=== PATIENT | female | born 1965 | race Caucasian/White ===

== ENCOUNTER 2018-12-23 03:14 | Emergency (ER) | payer OTHER ==
--- OUTSIDE RECORDS SUMMARY | 2018-12-23 03:18 | XMS REPORT | Clinical Summary ---
:1965 Author Organization [facility] Address [address] [place] [address] Care Team Providers Name Role Phone Oneil Gold MD Primary Care Provider Allergies No Known Allergies Medications Medication Sig Dispensed Refills Start Date End Date Status losartan-hydrochlorothi Take 1 tablet by 3 12/31/2017 Active azide (HYZAAR) 100-12.5 mouth daily. mg per tablet celecoxib (CeleBREX) Take 200 mg by 3 03/17/2018 Active 200 MG capsule mouth daily. zolpidem (AMBIEN) 5 MG Take 5 mg by 2 02/12/2018 Active tablet mouth nightly. liothyronine (CYTOMEL) Take 5 mcg by 0 Active 5 MCG tablet mouth daily. amLODIPine (NORVASC) Take 2.5 mg by 0 Active 2.5 mg tablet mouth daily. omeprazole (PriLOSEC) Take 40 mg by 0 Active 40 MG capsule mouth daily. aspirin (ASPIR-LOW) 81 Take 81 mg by 0 Active MG enteric coated mouth daily. tablet cholecalciferol, Take 1,000 Units 0 Active vitamin D3, (VITAMIN by mouth daily. D3) 1,000 unit tablet Active Problems Not on file Encounters Date Type Specialty Care Team Description 12/19/2018 Orders Only Urology Rylee Adrenal mass (HCC) Alonso gupta (Primary Dx) 12/18/2018 Telephone Urology Alonso Lagunas MD 12/10/2018 Office Visit Urology Rylee Adrenal adenoma, right Alonso gupta (Primary Dx) 05/05/2018 Telephone Gastroenterology Chelo Castro MD 05/01/2018 Hospital Encounter Radiology Juan Francisco, Breast screening MD Shelly 04/18/2018 Transcribe Orders Access Juan Francisco Breast screening MD Shelly (Primary Dx) 03/31/2018 Documentation Gastroenterology Chelo Castro MD 03/27/2018 Telephone GastroenterChelo Salazar MD 03/24/2018 Office Visit Gastroenterology Chelo Castro Gastroesophageal reflux disease, esophagitis presence not specified (Primary Dx); MD Hema Esophageal dysphagia; Irritable bowel syndrome, unspecified type 03/24/2018 Telephone Gastroenterology Chelo Castro MD 01/28/2018 Telephone Gastroenterology Delmi Elder MA after 12/22/2017 Family History Medical History Relation Name Comments Colon cancer Brother Breast cancer Maternal Aunt Breast cancer Mother Relation Name Status Comments Brother Brother Alive Father Maternal Aunt Mother Alive Social History Tobacco Use Types Packs/Day Years Used Date Never Smoker Smokeless Tobacco: Never Used Alcohol Use Drinks/Week oz/Week Comments No Sex Assigned at Date Recorded Not on file Job Start Date Occupation Industry Not on file Not on file Not on file Travel History Travel Start Travel End No recent travel history available. Last Filed Vital Signs Vital Sign Reading Time Taken Blood Pressure 147/80 03/24/2018 2:39 PM CDT Pulse 82 03/24/2018 2:39 PM CDT Temperature 37.1 C (98.8 F) 03/24/2018 2:39 PM CDT Respiratory Rate - - Oxygen Saturation - - Inhaled Oxygen Concentration - - Weight 94.3 kg (208 lb) 03/24/2018 2:39 PM CDT Height 156.2 cm (5' 1.5") 03/24/2018 2:39 PM CDT Body Mass Index 38.66 03/24/2018 2:39 PM CDT Plan of Treatment Date Type Specialty Care Team Description 01/27/2019 Office Visit Podiatry Zoey Suarez DPM [address] [facility] [place]Note 2[place] [address] [place] [id number] Health Maintenance Due Date Last Done Comments COLONOSCOPY SCREENING 2013 SHINGLES VACCINES (#1) 2013 INFLUENZA VACCINE 02/05/2019 BREAST CANCER SCREENING 05/01/2020 05/01/2018, 05/01/2017, 04/04/2016, Additional history exists Procedures Procedure Name Priority Date/Time Associated Comments Diagnosis POC URINALYSIS Routine 12/10/2018 12:09 PM Adrenal adenoma, Results for this DIPSTICK CDT right procedure are in the results section. MAMMO SCREENING W Routine 05/01/2018 2:12 PM Breast screening Results for this CAD BILATERAL CDT procedure are in the results section. after 12/22/2017 Results POC urinalysis dipstick (12/10/2018 12:09 PM CDT) Color urine, POC Yellow Clarity urine, POC Clear Glucose urine, POC Negative Negative Bilirubin urine, POC Negative Negative Ketones urine, POC Negative Negative Specific gravity urine, 1.015 1.005 - 1.030 POC Blood urine, POC Trace (A) Negative pH urine, POC 5.5 5.0, 5.5, 6.0, 6.5, 7.0, 7.5, 8.0, 8.5 Protein urine, POC Negative Negative Urobilinogen urine, POC <2.0 <2.0 Nitrite urine, POC Negative Negative Leukocyte esterase Negative Negative urine, POC Specimen Urine Mammo Screening w Cad Bilateral (05/01/2018 2:12 PM CDT) Specimen Narrative Performed At PROCEDURE: RADIANT MAMMO SCREENING W CAD BILATERAL Computer-assisted detection was utilized for the interpretation of this exam. COMPARISON: 2016 and 2015 TECHNIQUE: Bilateral digital screening mammogram was performed and interpreted using computer-assisted detection. CLINICAL HISTORY: The patient has no current palpable breast complaints. FINDINGS: Bilateral mammogram demonstrates the breast parenchyma to be scattered fibroglandular densities. LEFT:No specific features of malignancy. RIGHT: No specific features of malignancy. IMPRESSION: BI-RADS Category 2. Benign finding(s). Recommend comparison with physical exam and annual screening mammography. There has been no significant interval change from prior studies. This facility is accredited by [employer] for Mammography. A negative x-ray report should not delay biopsy if a dominant or clinically suspicious mass is present. Not all cancers are identified by x-ray. [id number] Performing Organization Address City/State/Zipcode Phone Number [facility] [address] [place] [address] after 12/22/2017 (Home) [place] [address] Advance Directives Patient has advance care planning documents on file. For more information, please contact:Michael Rose[address] [place] [address]
[2018-12-23 04:17] LABS: Absolute Lymphocytes (CBC) 2.2 K/uL (0.7-4.9); Basophils % 0.6 % (0-1.3); Eosinophils % 3.6 % (0-4.4); Hematocrit 39.2 % (36.0-45.0); Lymphocytes % 29.2 % (15.3-44.8); MPV 7.6 fL (7.6-11.3); Monocytes % 12.9 % (3.3-12.3); RBC Red Blood Cell Count 4.48 M/uL (3.86-4.86)
[2018-12-23 04:26] LABS: BUN Blood Urea Nitrogen 16 mg/dL (7-18); Bicarbonate 25 mmol/L (21-32); Glucose Level 105 mg/dL (74-106); Potassium 3.8 mmol/L (3.5-5.1); Sodium Level 139 mmol/L (136-145); Troponin (Emerg Dept Use Only) < 0.02 ng/mL (0.0-0.045)
--- NOTE | 2018-12-23 05:11 | EDPHYS ---
Physician Documentation [facility] Name: Denise Fritz Age: 53 yrs Sex: Female : 1965 Arrival Date: 12/23/2018 Time: 03:17 Bed 7 Private MD: Oneil Gold ED Physician Arslan Ferraro HPI: 12/23 04:57 This 53 yrs old Female presents to ER via EMS with complaints of Chest Pain. gs 04:57 The patient or guardian reports chest pain that is located primarily in the anterior gs chest wall. Onset: this morning. The pain does not radiate. Associated signs and symptoms: Pertinent negatives: shortness of breath. The chest pain is described as a heaviness. Duration: The patient or guardian reports a single episode, that is now resolved, that lasted 5 minute(s). Modifying factors: The symptoms are alleviated by nothing. the symptoms are aggravated by nothing. Severity of pain: At its worst the pain was moderate in the emergency department the pain has resolved. The patient has not experienced similar symptoms in the past. The patient has not recently seen a physician. Historical: - Allergies: 03:35 No Known Allergies; tl2 - Home Meds: 03:35 losartan oral oral [Active]; Ambien Oral [Active]; Celebrex Oral [Active]; tl2 - PMHx: 03:35 Hypertension; uterine cancer; tl2 - PSHx: 03:35 Thyroidectomy; tl2 - Immunization history:: Adult Immunizations up to date. - Social history:: Smoking status: Patient/guardian denies using tobacco. - Ebola Screening: : No symptoms or risks identified at this time. ROS: 04:57 All other systems are negative. gs Exam: 04:57 Head/Face: Normocephalic, atraumatic. Eyes: Pupils equal round and reactive to light, gs extra-ocular motions intact. Lids and lashes normal. Conjunctiva and sclera are non-icteric and not injected. Cornea within normal limits. Periorbital areas with no swelling, redness, or edema. ENT: Nares patent. No nasal discharge, no septal abnormalities noted. Tympanic membranes are normal and external auditory canals are clear. Oropharynx with no redness, swelling, or masses, exudates, or evidence of obstruction, uvula midline. Mucous membranes moist. Neck: Trachea midline, no thyromegaly or masses palpated, and no cervical lymphadenopathy. Supple, full range of motion without nuchal rigidity, or vertebral point tenderness. No Meningismus. Chest/axilla: Normal chest wall appearance and motion. Nontender with no deformity. No lesions are appreciated. Cardiovascular: Regular rate and rhythm with a normal S1 and S2. No gallops, murmurs, or rubs. Normal PMI, no JVD. No pulse deficits. Respiratory: Lungs have equal breath sounds bilaterally, clear to auscultation and percussion. No rales, rhonchi or wheezes noted. No increased work of breathing, no retractions or nasal flaring. Abdomen/GI: Soft, non-tender, with normal bowel sounds. No distension or tympany. No guarding or rebound. No evidence of tenderness throughout. Back: No spinal tenderness. No costovertebral tenderness. Full range of motion. Skin: Warm, dry with normal turgor. Normal color with no rashes, no lesions, and no evidence of cellulitis. MS/ Extremity: Pulses equal, no cyanosis. Neurovascular intact. Full, normal range of motion. Neuro: Awake and alert, GCS 15, oriented to person, place, time, and situation. Cranial nerves II-XII grossly intact. Motor strength 5/5 in all extremities. Sensory grossly intact. Cerebellar exam normal. Normal gait. 04:57 Constitutional: The patient appears alert, awake. 04:57 ECG was reviewed by the Attending Physician. Vital Signs: 03:35 BP 121 / 83; Pulse 66; Resp 18; Temp 98.8(O); Pulse Ox 97% on R/A; Weight 95.25 kg; tl2 Height 5 ft. 6 in. (167.64 cm); Pain 0/10; 04:33 BP 115 / 69; Pulse 64; Resp 18; Pulse Ox 98% on R/A; tl2 03:35 Body Mass Index 33.89 (95.25 kg, 167.64 cm) tl2 MDM: 03:34 Patient medically screened. gs 04:57 Differential diagnosis: abnormal EKG, coronary artery disease chest wall pain, gs pleurisy, pneumonia. HEART Score: History: Slightly Suspicious (0), ECG: Normal (0), Age: > 45 and < 65 years (1), Risk Factors: 1 or 2 risk factors (1), [Hypertension] Troponin: < or = 1 x Normal Limit (0). Data reviewed: vital signs, nurses notes, lab test result(s), EKG, radiologic studies. Counseling: I had a detailed discussion with the patient and/or guardian regarding: the historical points, exam findings, and any diagnostic results supporting the discharge/admit diagnosis, the need for outpatient follow up. 12/23 03:36 Order name: Basic Metabolic Panel; Complete Time: 04:47 12/23 03:36 Order name: CBC with Diff; Complete Time: 04:47 12/23 03:36 Order name: Troponin (emerg Dept Use Only); Complete Time: 04:47 12/23 03:36 Order name: XRAY Chest (1 view) 12/23 03:36 Order name: EKG; Complete Time: 03:39 12/23 03:36 Order name: Cardiac monitoring; Complete Time: 03:40 12/23 03:36 Order name: EKG - Nurse/Tech; Complete Time: 03:40 12/23 03:36 Order name: IV Saline Lock; Complete Time: 03:49 12/23 03:36 Order name: Labs collected and sent; Complete Time: 03:49 12/23 03:36 Order name: O2 Per Protocol; Complete Time: 03:40 12/23 03:36 Order name: O2 Sat Monitoring; Complete Time: 03:40 EC:57 Rate is 69 beats/min. Rhythm is regular. SD interval is normal. QRS interval is normal. gs QT interval is normal. No Q waves. T waves are Normal. No ST changes noted. Clinical impression: Normal ECG. Interpreted by me. Administered Medications: No medications were administered Disposition: 12/23/18 05:10 Discharged to Home. Impression: Chest pain, unspecified. - Condition is Stable. - Discharge Instructions: Nonspecific Chest Pain. - Medication Reconciliation Form, Thank You Letter, Antibiotic Education, Prescription Opioid Use form. - Follow up: Private Physician; When: 1 - 2 days; Reason: Re-evaluation by your physician. Follow up: Bobby Yun MD; When: 2 - 3 days; Reason: Re-evaluation by your physician. Signatures: Dispatcher [facility] CenterLaine Bell RN RN tl2 Arslan Ferraro MD MD Corrections: (The following items were deleted from the chart) 05:11 05:10 12/23/2018 05:10 Discharged to Home. Impression: Chest pain, unspecified. gs Condition is Stable. Forms are Medication Reconciliation Form, Thank You Letter, Antibiotic Education, Prescription Opioid Use. Follow up: Private Physician; When: 1 - 2 days; Reason: Re-evaluation by your physician. 05:30 05:11 12/23/2018 05:10 Discharged to Home. Impression: Chest pain, unspecified. tl2 Condition is Stable. Discharge Instructions: Nonspecific Chest Pain. Forms are Medication Reconciliation Form, Thank You Letter, Antibiotic Education, Prescription Opioid Use. Follow up: Physician; When: 1 - 2 days; Reason: Re-evaluation by your physician. Follow up: Bobby Yun; When: 2 - 3 days; Reason: Re-evaluation by your physician.
--- NOTE | 2018-12-23 05:11 | ER ---
Nurse's Notes [facility] Name: Denise Fritz Age: 53 yrs Sex: Female : 1965 Arrival Date: 12/23/2018 Time: 03:17 Bed 7 Private MD: Oneil Gold Diagnosis: Chest pain, unspecified Presentation: 12/23 03:32 Presenting complaint: Patient states: Woke up at 0215 with sharp pain in the chest, tl2 mild shortness of breath and dizziness. Took baby aspirin at home. EMS gave 3 additional 81 mg aspirin. Pt states that pain is resolved at this time. Transition of care: patient was not received from another setting of care. Onset of symptoms was December 23, 2018 at 02:15. Risk Assessment: Do you want to hurt yourself or someone else? Patient reports no desire to harm self or others. Initial Sepsis Screen: Does the patient meet any 2 criteria? No. Patient's initial sepsis screen is negative. Does the patient have a suspected source of infection? No. Patient's initial sepsis screen is negative. Care prior to arrival: Medication(s) given: ASA, 81 mg, x 4. 03:32 Method Of Arrival: EMS: [facility] tl2 03:32 Acuity: MEHNAZ 3 tl2 Triage Assessment: 03:35 General: Appears in no apparent distress. comfortable, Behavior is calm, cooperative, tl2 appropriate for age. Pain: Denies pain. Neuro: Level of Consciousness is awake, alert, obeys commands, Oriented to person, place, time, situation. Cardiovascular: Chest pain Reports chest pain has resolved at this time. Was previously sharp pain that radiated to back between the shoulder blades. Respiratory: Airway is patent Respiratory effort is even, unlabored, Respiratory pattern is regular, symmetrical. GI: No signs and/or symptoms were reported involving the gastrointestinal system. : No signs and/or symptoms were reported regarding the genitourinary system. Derm: Skin is pink, warm \T\ dry. Historical: - Allergies: 03:35 No Known Allergies; tl2 - Home Meds: 03:35 losartan oral oral [Active]; Ambien Oral [Active]; Celebrex Oral [Active]; tl2 - PMHx: 03:35 Hypertension; uterine cancer; tl2 - PSHx: 03:35 Thyroidectomy; tl2 - Immunization history:: Adult Immunizations up to date. - Social history:: Smoking status: Patient/guardian denies using tobacco. - Ebola Screening: : No symptoms or risks identified at this time. Screenin:38 Abuse screen: Denies threats or abuse. Nutritional screening: No deficits noted. tl2 Tuberculosis screening: No symptoms or risk factors identified. Fall Risk None identified. Assessment: 03:35 General: see triage assessment. tl2 03:38 Pain: Pain radiates to back Pain began 2 hours ago. tl2 04:30 Reassessment: Patient appears in no apparent distress at this time. Patient and/or tl2 family updated on plan of care and expected duration. Pain level reassessed. Patient is alert, oriented x 3, equal unlabored respirations, skin warm/dry/pink. 05:25 Reassessment: Patient appears in no apparent distress at this time. Patient and/or tl2 family updated on plan of care and expected duration. Pain level reassessed. Patient is alert, oriented x 3, equal unlabored respirations, skin warm/dry/pink. pt verbalized understanding of discharge instructions, need for follow up. Vital Signs: 03:35 BP 121 / 83; Pulse 66; Resp 18; Temp 98.8(O); Pulse Ox 97% on R/A; Weight 95.25 kg; tl2 Height 5 ft. 6 in. (167.64 cm); Pain 0/10; 04:33 BP 115 / 69; Pulse 64; Resp 18; Pulse Ox 98% on R/A; tl2 03:35 Body Mass Index 33.89 (95.25 kg, 167.64 cm) tl2 ED Course: 03:17 Patient arrived in ED. am2 03:18 Oneil Gold MD is Private Physician. am2 03:19 Arslan Ferraro MD is Attending Physician. gs 03:31 Laine Wilkerson RN is Primary Nurse. tl2 03:34 Triage completed. tl2 03:35 Arm band placed on right wrist. EKG completed in triage. Results shown to MD. tl2 03:38 Patient has correct armband on for positive identification. Bed in low position. Call tl2 light in reach. Side rails up X2. Pulse ox on. NIBP on. 03:38 Patient maintains SpO2 saturation greater than 95% on room air. tl2 03:44 Initial lab(s) drawn, by me, sent to lab. Inserted saline lock: 22 gauge in right tl2 antecubital area, using aseptic technique. Blood collected. 04:04 XRAY Chest (1 view) In Process Unspecified. EDMS 04:30 No provider procedures requiring assistance completed. tl2 05:11 Bobby Yun MD is Referral Physician. gs 05:29 IV discontinued, intact, bleeding controlled, No redness/swelling at site. Pressure tl2 dressing applied. Administered Medications: No medications were administered Outcome: 05:10 Discharge ordered by MD. gs 05:29 Discharged to home ambulatory, with family. tl2 05:29 Condition: stable 05:29 Discharge instructions given to patient, family, Instructed on discharge instructions, follow up and referral plans. Demonstrated understanding of instructions, follow-up care. 05:30 Patient left the ED. tl2 Signatures: Dispatcher [employer] EDNE Laine Wilkreson RN RN tl2 Kym Franz 2 Arslan Ferraro MD MD Corrections: (The following items were deleted from the chart) 05:24 03:35 Cardiovascular: Chest pain Reports chest pain has resolved at this time. Was tl2 previously sharp pain that did not radiate. tl2 05:24 03:38 Pain: Pain does not radiate. Pain began 2 hours ago. tl2 tl2
--- NOTE | 2018-12-23 08:10 | RAD REPORT ---
EXAM DESCRIPTION: RAD - Chest Single View - 12/23/2018 4:04 am CLINICAL HISTORY: Chest pain, shortness breath COMPARISON: February 2015 TECHNIQUE: AP portable chest image was obtained 0403 hours . FINDINGS: Lungs are clear. Heart and vasculature are normal. No measurable pleural effusion and no p neumothorax. No acute bony abnormality seen. No acute aortic findings suspected. IMPRESSION: No acute cardiopulmonary process. No significant interval change.
--- NOTE | 2018-12-23 12:11 | EKG ---
Test Date: 2018-12-23 Test Time: 03:28:30 Strap Cutting Machine Operator: MYAH MEASUREMENT RESULTS: Intervals: Rate: 69 IL: 136 QRSD: 80 QT: 400 QTc: 428 Timpson: P: 32 IL: 136 QRS: 31 T: 19 INTERPRETIVE STATEMENTS: Normal sinus rhythm Normal ECG No previous ECG available for comparison Electronically Signed On 12-23-18 12:10:16 CDT by Gustabo Roland
== END 2018-12-23 05:30 | disposition home or self-care (01) ==
LOC: ER 03:14
DX: R07.9 Chest pain, unspecified (principal); I10 Essential (primary) hypertension
CPT/HCPCS: 36415; 71045; 80048; 84484; 85025; 93005; 99284

== ENCOUNTER 2023-03-27 10:45 | Emergency (ER) | payer OTHER ==
--- OUTSIDE RECORDS SUMMARY | 2023-03-27 10:48 | XMS REPORT | Continuity of Care Document ---
:1965 Author Organization [facility] t Address [address] [place] [address] Care Team Providers Name Role Phone Raquel BARNES, Chioma Primary Care Physician [phone] Chioma García MD Attending Clinician KATHERYN FRASER Attending Clinician Unavailable VIVIANA MULTANI Attending Clinician Unavailable GYPSY BORRERO Attending Clinician Unavailable LANRE BEATTY Attending Clinician Unavailable SERA ALEXANDER Attending Clinician Unavailable Payers Payer Name Policy Type Policy Number Effective Date Expiration Date S ource Problems This patient has no known problems. Allergies, Adverse Reactions, Alerts This patient has no known allergies or adverse reactions. Family History Family Member Diagnosis Comments Start Date Stop Date Source Natural brother Colon cancer [facility] Natural father [facility] Maternal aunt Breast cancer [facility] mother Breast cancer [facility] Social History Social Habit Start Date Stop Date Quantity Comments Source [facility] Alcohol intake 2021-12-20 2021-12-20 Current Jew 00:00:00 00:00:00 non-drinker of Hospital alcohol (finding) History of Social 2021-12-20 2021-12-[address] function 00:00:00 00:00:00 Hospital Tobacco use and 2018-03-24 2018-03-24 Smokeless Jew exposure 00:00:00 00:00:00 tobacco non-user Hospital Sex Assigned At [birth year] F Jew 00:00:00 00:00:00 Hospital Smoking Status Start Date Stop Date Source Never smoked tobacco [facility] Medications Ordered Filled Start Stop Current Ordering Indication Dosage Frequency Signature Comments Components Source Medication Medication Date Date Medication? Clinician (SIG) Name Name liothyronin Yes 5ug QD Take 5 mcg [facility] (CYTOMEL) 6-[address] 5 MCG 14:23: daily. Hospita tablet 41 l amLODIPine Yes 2.5mg QD Take 2.5 Me thodi (NORVASC) 6-[address] 2.5 mg 14:23: mouth [facility]osp[facility] tablet 41 daily. l omeprazole Yes 40mg QD Take 40 mg M ethodi (PriLOSEC) 6-[address] 40 MG 14:23: daily. Hospita capsule 41 l aspirin Yes 81mg QD Take 81 mg Meth akiko (ECOTRIN) 6-[address] 81 MG 14:23: daily. Hospita enteric 41 l coated tablet cholecalcif Yes 1000U QD Take 1,000 [facility] maria guadalupe, 6-[address] vitamin D3, 14:23: mouth Hospi ta (VITAMIN 41 daily. l D3) 1,000 unit tablet B complex Yes QD Take by Metho di with C 6-[address] 20-folic 14:23: daily. Hospita acid 1 mg 41 l capsule temazepam Yes 15mg QD Take 15 mg Me thodi (RESTORIL) 6-[address] 15 mg 14:23: nightly as Hospit a capsule 41 needed for l sleep. hyoscyamine Yes .125mg Q4H Place 1 M ethodi sulfate 7-[address] 0.125 mg 00:00: (0.125 mg Hosp tayla tablet,disi 00 total) l ntegrating under the tongue every 4 (four) hours as needed (pain or cramping) for up to 60 doses. zolpidem Yes 5mg QD Take 5 mg Meth akiko (AMBIEN) 5 8-[address] MG tablet 00:00: nightly. Hosp tayla 00 l losartan-hy Yes 1{tbl} QD Take 1 Me thodi drochloroth 6-[address] iazide 00:00: mouth Hospita (HYZAAR) 00 daily. l 100-12.5 mg per tablet Procedures Procedure Date / Time Performing Clinician Source Performed MAMMO BREAST SCREEN 2023-02-26 20:49:04 Chioma García [facility] TOMOSYNTHESIS BILATERAL Plan of Care Planned Activity Planned Date Details Comments Source Future Scheduled 2023-03-09 Screening for [facility] Test 20:12:03 malignant neoplasm of colon (procedure) [code = 089711119] Future Scheduled 2023-03-09 Screening for [facility] Test 20:12:03 malignant neoplasm of colon (procedure) [code = 502509795] Future Scheduled 2023-03-09 Screening for [facility] Test 20:12:03 malignant neoplasm of colon (procedure) [code = [id number]] Future Scheduled 2023-03-09 COVID-19 VACCINE [facility] Test 20:12:03 (#1) [code = COVID-19 VACCINE (#1)] Future Scheduled 2023-03-09 Hepatitis C [facility] Test 20:12:03 screening (procedure) [code = 776138311] Future Scheduled 2023-03-09 Screening for [facility] Test 20:12:03 malignant neoplasm of cervix (procedure) [code = 838085601] Future Scheduled 2023-03-09 Screening for [facility] Test 20:12:03 malignant neoplasm of colon (procedure) [code = 427862620] Future Scheduled 2023-03-09 Screening for [facility] Test 20:12:03 malignant neoplasm of colon (procedure) [code = [id number]] Future Scheduled 2023-03-09 SHINGLES VACCINES [facility] Test 20:12:03 (1 of 2) [code = SHINGLES VACCINES (1 of 2)] Future Scheduled 2023-03-09 INFLUENZA VACCINE [facility] Test 20:12:03 (#1) [code = INFLUENZA VACCINE (#1)] Future Scheduled 2023-03-09 BREAST CANCER [facility] Test 20:12:03 SCREENING [code = BREAST CANCER SCREENING] Encounters Start End Encounter Admission Attending Care Care Encounter Source Date/Time Date/Time Type Type Clinicians Facility Department ID 2023-02-26 2023-02-26 [facility], [id number] Method[facility] 15:26:45 23:59:00 Encounter [place]oma [id number] 3.430.2.7 Hospit a .3.708855 l .8 2023-02-26 2023-02-26 Outpatient RAQUEL, [facility] [id number] [place] 00:00:00 00:00:[address] CHIOMA [address] 2023-02-26 2023-02-26 Transcribe Raquel, 1.2.840.1 [id number] [facility] 00:00:00 00:00:00 Orders Chioma [id number] 3.430.2.7 Hospit a .3.116076 l .8 2021-12-25 2021-12-25 Outpatient MENDOZA[facility] [id number] [place] 00:00:00 00:00:00 OVAL, 264 Method i KATHERYN 2021-12-20 2021-12-20 Outpatient [facility] [id number] [place] 00:00:00 00:00:00 OVAL, 096 Method i KATHERYN 2021-02-01 2021-02-01 Outpatient [facility] [id number] [place] 00:00:00 00:00:00 OVAL, 158 Method i KATHERYN 2021-02-01 2021-02-01 Outpatient RAQUEL, [facility] [id number] [place] 00:00:00 00:00:00 CHIOMA 912 Meth akiko 2020-12-26 2020-12-26 Outpatient [facility] [id number] [place] 00:00:00 00:00:00 OVAL, [address] 2020-01-14 2020-01-14 Outpatient MULTANI, [facility] [id number] [place] 00:00:00 00:00:00 VIVIANA 672 Method i 2020-01-04 2020-01-04 Outpatient GISSELL, [facility] [id number] [place] 00:00:00 00:00:00 GYPSY 006 Method i 2019-12-04 2019-12-04 Outpatient BEATTY, [facility] [id number] [place] 00:00:00 00:00:00 SHETAL [address] 2019-06-26 2019-06-26 Outpatient SARA [facility] [id number] [place] 00:00:00 00:00:00 OVAL, [address] 2019-05-26 2019-05-26 Outpatient CATHERINE [facility] [id number] [place] 00:00:00 00:00:00 SERA [address] Results This patient has no known results.
[2023-03-27 11:20] LABS: Hematocrit 42.2 % (36.0-45.0); Lymphocytes % 29.9 % (15.3-44.8); MCV 86.7 fL (80-100); MPV 7.5 fL (7.6-11.3); Platelets 413 thou/uL (152-406); RBC Red Blood Cell Count 4.87 M/uL (3.86-4.86)
[2023-03-27] MEDS ORDERED: ASPIRIN 81 MG CHEWABLE TABLET ONE (11:27)
[2023-03-27 11:38] LABS: Potassium 3.5 mEq/L (3.5-5.1); Troponin High Sensitivity 4.9 pg/mL (<58.9)
--- NOTE | 2023-03-27 12:40 | RAD REPORT ---
EXAM DESCRIPTION: RAD - Chest Single View - 03/27/2023 11:43 am CLINICAL HISTORY: CHEST PAIN Chest pain. COMPARISON: Chest Single View dated 12/23/2018; CHEST PA AND LAT 2 VIEW dated 02/16/2015; ABDOMEN 1 EW KUB dated 12/16/2012 FINDINGS: Portable technique limits examination quality. The lungs are grossly clear. The heart is normal in size. No displaced fractures. IMPRESSION: No acute intrathoracic process suspected.
--- NOTE | 2023-03-27 13:17 | EDPHYS ---
Physician Documentation [facility] Name: Denise Fritz Age: 57 yrs Sex: Female : 1965 Arrival Date: 03/27/2023 Time: 10:45 Bed 2 Private MD: ED Physician Lay Constantino HPI: 03/27 13:04 This 57 yrs old Female presents to ER via Ambulatory with complaints of Chest Pain. ci 13:04 Patient is a 57-year-old female with PMH hypertension, uterine cancer who presents with ci midsternal chest pain that began a 3 AM. Pain feels like tightness, radiates into the left back, was initially severe, she took 1 baby aspirin and pain subsided. Patient called PCP and was told to come to the ER because pain did not completely go away. She denies associated shortness of breath, diaphoresis, nausea/vomiting. Denies tobacco use. She denies prolonged immobility, recent surgery, history of DVT/PE.. Historical: - Allergies: 10:54 No Known Allergies; ll1 - PMHx: 10:54 Hypertension; uterine cancer; ll1 - PSHx: 10:54 Thyroidectomy; hysterectomy; ll1 - Immunization history:: Client reports having NOT received the Covid vaccine. - Social history:: Smoking status: Patient denies any tobacco usage or history of. ROS: 13:04 Constitutional: Negative for fever, chills, and weight loss, Eyes: Negative for injury, ci pain, redness, and discharge, ENT: Negative for injury, pain, and discharge, Neck: Negative for injury, pain, and swelling, Cardiovascular: Negative for palpitations, and edema. Positive chest pain. Respiratory: Negative for shortness of breath, cough, wheezing, and pleuritic chest pain, Abdomen/GI: Negative for abdominal pain, nausea, vomiting, diarrhea, and constipation, MS/Extremity: Negative for injury and deformity, Skin: Negative for injury, rash, and discoloration, Neuro: Negative for headache, weakness, numbness, tingling, and seizure, Exam: 13:04 Constitutional: This is a well developed, well nourished patient who is awake, alert, ci and in no acute distress. Head/Face: Normocephalic, atraumatic. Eyes: Pupils equal round and reactive to light, extra-ocular motions intact. Lids and lashes normal. Conjunctiva and sclera are non-icteric and not injected. Cornea within normal limits. Periorbital areas with no swelling, redness, or edema. ENT: Nares patent. No nasal discharge, no septal abnormalities noted. Tympanic membranes are normal and external auditory canals are clear. Oropharynx with no redness, swelling, or masses, exudates, or evidence of obstruction, uvula midline. Mucous membranes moist. Neck: Trachea midline, no thyromegaly or masses palpated, and no cervical lymphadenopathy. Supple, full range of motion without nuchal rigidity, or vertebral point tenderness. No Meningismus. Chest/axilla: Normal chest wall appearance and motion. Nontender with no deformity. No lesions are appreciated. Cardiovascular: Regular rate and rhythm with a normal S1 and S2. No gallops, murmurs, or rubs. Normal PMI, no JVD. No pulse deficits. Respiratory: Lungs have equal breath sounds bilaterally, clear to auscultation and percussion. No rales, rhonchi or wheezes noted. No increased work of breathing, no retractions or nasal flaring. Abdomen/GI: Soft, non-tender, with normal bowel sounds. No distension or tympany. No guarding or rebound. No evidence of tenderness throughout. Back: No spinal tenderness. No costovertebral tenderness. Full range of motion. Skin: Warm, dry with normal turgor. Normal color with no rashes, no lesions, and no evidence of cellulitis. MS/ Extremity: Pulses equal, no cyanosis. Neurovascular intact. Full, normal range of motion. Neuro: Awake and alert, GCS 15, oriented to person, place, time, and situation. Cranial nerves II-XII grossly intact. Motor strength 5/5 in all extremities. Sensory grossly intact. Cerebellar exam normal. Normal gait. Psych: Awake, alert, with orientation to person, place and time. Behavior, mood, and affect are within normal limits. Vital Signs: 10:54 BP 188 / 102; Pulse 96; Resp 18; Temp 98.1; Pulse Ox 99% on R/A; Weight 92.99 kg; ll1 Height 5 ft. 2 in. ; Pain 2/10; 11:06 BP 166 / 98; Pulse 102; Resp 13; Pulse Ox 100% ; ko1 10:54 Body Mass Index 37.49 (92.99 kg, 157.48 cm) ll1 10:54 Pain Scale: Adult ll1 MDM: 10:53 Patient medically screened. ci 13:14 Differential diagnosis: abnormal EKG, acute myocardial infarction, coronary artery ci disease pneumonia, pulmonary embolus, stable angina, unstable angina. HEART Score: History: Slightly Suspicious (0), ECG: Normal (0), Age: > 45 and < 65 years (1), Risk Factors: 1 or 2 risk factors (1), [Hypertension] [Obesity] Troponin: < or = 1 x Normal Limit (0), Total Score = 2. The patient was given aspirin in the Emergency Department. Historians other than the Patient: Spouse/Significant Other: . Care significantly affected by the following chronic conditions: Hypertension. ED course: Cardiac work-up unremarkable, ACS unlikely. Patient's pain resolved here in the ED. Discussed need for close outpatient follow-up. 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 Stable for discharge.. 03/27 11:01 Order name: Basic Metabolic Panel; Complete Time: 13:06 ci 03/27 11:01 Order name: CBC with Diff; Complete Time: 13:06 ci 03/27 11:01 Order name: Troponin HS; Complete Time: 13:06 ci 03/27 11:02 Order name: PROBNP; Complete Time: 13:06 ci 03/27 11:01 Order name: XRAY Chest (1 view); Complete Time: 13:06 ci 03/27 13:07 Interpretation: Per Radiologist's finding(s): IMPRESSION: No acute intrathoracic ci process suspected. 03/27 11:01 Order name: EKG; Complete Time: 11:02 ci 03/27 11:01 Order name: Cardiac monitoring; Complete Time: 11:14 ci 03/27 11:01 Order name: EKG - Nurse/Tech; Complete Time: 11:10 ci 03/27 11:01 Order name: IV Saline Lock; Complete Time: 11:14 ci 03/27 11:01 Order name: Labs collected and sent; Complete Time: 11:14 ci 03/27 11:01 Order name: O2 Per Protocol; Complete Time: 11:14 ci 03/27 11:01 Order name: O2 Sat Monitoring; Complete Time: 11:14 ci Administered Medications: 11:19 Drug: Aspirin PO Chewable Tablet 243 mg PO once; 81 mg tablets x 3 Route: PO; cp4 12:17 Follow up: Response: No adverse reaction cp4 14:11 Follow up: Response: No adverse reaction cp4 Disposition Summary: 03/27/23 13:17 Discharge Ordered Notes: Location: Home ci Condition: Stable ci Diagnosis - Chest pain, unspecified ci - Essential (primary) hypertension ci Followup: ci - With: Private Physician - When: 1 - 2 days - Reason: Recheck today's complaints, Re-evaluation by your physician Discharge Instructions: - Discharge Summary Sheet ci - Nonspecific Chest Pain, Adult, [id number] ci - Hypertension, Adult, [id number] ci Forms: - Medication Reconciliation Form ci - Thank You Letter ci - Antibiotic Education ci - Prescription Opioid Use ci - Patient Portal Instructions ci - Leadership Thank You Letter ci Signatures: Dispatcher [employer] Fabián Perez RN RN ll1 Aidee Collins 4 Lay Constantino ci
--- NOTE | 2023-03-27 13:17 | ER ---
Nurse's Notes [facility] Name: Denise Fritz Age: 57 yrs Sex: Female : 1965 Arrival Date: 03/27/2023 Time: 10:45 Bed 2 Private MD: Diagnosis: Chest pain, unspecified;Essential (primary) hypertension Presentation: 03/27 10:54 Chief complaint: Patient states: CP, SOB, shaky, bounding pulse since 3 AM. Coronavirus ll1 screen: Vaccine status: Patient reports being unvaccinated. Client denies travel out of the [place] in the last 14 days. At this time, the client does not indicate any symptoms associated with coronavirus-19. Ebola Screen: Patient denies travel to an Ebola-affected area in the 21 days before illness onset. Initial Sepsis Screen: Does the patient meet any 2 criteria? HR > 90 bpm. No. Patient's initial sepsis screen is negative. Does the patient have a suspected source of infection? No. Patient's initial sepsis screen is negative. Risk Assessment: Do you want to hurt yourself or someone else? Patient reports no desire to harm self or others. Onset of symptoms was March 27, 2023 at 03:00. 10:54 Method Of Arrival: Ambulatory ll1 10:54 Acuity: MEHNAZ 2 ll1 Historical: - Allergies: 10:54 No Known Allergies; ll1 - PMHx: 10:54 Hypertension; uterine cancer; ll1 - PSHx: 10:54 Thyroidectomy; hysterectomy; ll1 - Immunization history:: Client reports having NOT received the Covid vaccine. - Social history:: Smoking status: Patient denies any tobacco usage or history of. Screenin:58 [facility] ED Fall Risk Assessment (Adult) History of falling in the last 3 months, cp4 including since admission No falls in past 3 months (0 pts) Confusion or Disorientation No (0 pts) Intoxicated or Sedated No (0 pts) Impaired Gait No (0 pts) Mobility Assist Device Used No (0 pt) Altered Elimination No (0 pt) Score/Fall Risk Level 0 - 2 = Low Risk. 10:58 Abuse screen: Denies threats or abuse. Nutritional screening: No deficits noted. cp4 Tuberculosis screening: No symptoms or risk factors identified. Assessment: 10:58 General: Appears distressed, uncomfortable. Pain: Complains of pain in back and chest. cp4 Neuro: No deficits noted. Cardiovascular: Chest pain quality is crushing, is located in substernal area back began started at 0300 today. Respiratory: No deficits noted. GI: No deficits noted. : No deficits noted. EENT: No deficits noted. Derm: No deficits noted. Musculoskeletal: No deficits noted. Vital Signs: 10:54 BP 188 / 102; Pulse 96; Resp 18; Temp 98.1; Pulse Ox 99% on R/A; Weight 92.99 kg; ll1 Height 5 ft. 2 in. ; Pain 2/; 11:06 BP 166 / 98; Pulse 102; Resp 13; Pulse Ox 100% ; ko1 10:54 Body Mass Index 37.49 (92.99 kg, 157.48 cm) ll1 10:54 Pain Scale: Adult ll1 ED Course: 10:47 Patient arrived in ED. mg5 10:49 Lay Constantino is Attending Physician. ci 10:54 Arm band placed on Patient placed in an exam room, on a stretcher. ll1 10:56 Triage completed. ll1 10:58 Bed in low position. Call light in reach. Side rails up X 1. cp4 10:58 Inserted saline lock: 20 gauge in right antecubital area, using aseptic technique. cp4 Blood collected. 11:10 EKG done, by ED staff, reviewed by Lay Constantino. em1 11:14 Basic Metabolic Panel Sent. cp4 11:14 CBC with Diff Sent. cp4 11:14 Troponin HS Sent. cp4 11:45 XRAY Chest (1 view) In Process Unspecified. EDMS 12:29 Amaris Choi, RN is Primary Nurse. ko1 14:10 Provided Education on: hypertension and chest pain. . cp4 14:10 No provider procedures requiring assistance completed. intact, bleeding controlled, No cp4 redness/swelling at site. Administered Medications: 11:19 Drug: Aspirin PO Chewable Tablet 243 mg PO once; 81 mg tablets x 3 Route: PO; cp4 12:17 Follow up: Response: No adverse reaction cp4 14:11 Follow up: Response: No adverse reaction cp4 Medication: 10:58 VIS not applicable for this client. cp4 Outcome: 13:17 Discharge ordered by . ci 14:10 Discharged to home ambulatory, cp4 14:10 Condition: stable 14:10 Discharge instructions given to patient, Instructed on discharge instructions, follow up and referral plans. Demonstrated understanding of instructions, follow-up care, 14:12 Patient left the ED. cp4 Signatures: Dispatcher [employer] Paul Waldron emFabián Leyva RN RN ll1 Amaris Choi RN RN Alesha Wells5 Aidee Collins cp4 Lay Consatntino
[2023-03-27 14:47] VITALS: TEMP 98.1
[2023-03-27 14:48] VITALS: BP 166/98; O2SAT 100
== END 2023-03-27 14:12 | disposition home or self-care (01) ==
LOC: ER 10:45
DX: R07.89 Other chest pain (principal); I10 Essential (primary) hypertension
CPT/HCPCS: 36415; 71045; 80048; 83880; 84484; 85025